=== PATIENT | female | born 1985 | race African-American/Black ===

== ENCOUNTER 2021-04-11 10:50 | Emergency (ER) | payer MEDICAID, OTHER ==
[~2021-04-11] VITALS: Ht 172.7 cm; Wt 80.0 kg
[~2021-04-11 10:50] MED LIST: HYDR-3927
[2021-04-11] MEDS ORDERED: METHOCARBAMOL 500MG TABLET PO ONE (11:15)
[2021-04-11] MEDS ORDERED: KETOROLAC 60MG/2ML VIAL IM ONE ×2 (11:15→16:30)
[2021-04-11] MEDS ORDERED: ACETAMINOPHEN 325MG TABLET PO ONE (11:15)
[2021-04-11] MEDS: LIDOCAINE 5% PATCH TOP SCH ×2 (11:38→12:02)
[2021-04-11] MEDS ORDERED: IPRATROPIUM BROMIDE (0.02%) 0.5MG/2.5ML NEB HHN STA (12:29)
[2021-04-11] MEDS: ALBUTEROL (0.083%) 2.5MG/3ML NEB HHN SCH ×3 (13:22→13:55)
[2021-04-11] MEDS ORDERED: IBUP-2028 MT (16:09)
[2021-04-11] MEDS ORDERED: TOPUD PO (16:10)
[2021-04-11] MEDS ORDERED: METH-653 MT (16:10)
[2021-04-11] MEDS ORDERED: LIDO1ADH5 TP (16:11)
[2021-04-11] MEDS ORDERED: MORP15TA67 MT ×2 (16:12→16:15)
[2021-04-11] MEDS ORDERED: KETOROLAC 30MG/ML VIAL IM ONE (16:30)
[2021-04-11] MEDS ORDERED: HYDROCODONE/ACETAMINOPHEN 5/325MG TABLET PO ONE (16:30)
[2021-04-11 17:01] VITALS: BP 137/86
== END 2021-04-11 17:01 | disposition home or self-care (01) ==
LOC: ER 11:24
DX: M25.572 Pain in left ankle and joints of left foot (principal); F12.10 Cannabis abuse, uncomplicated; R06.02 Shortness of breath; I10 Essential (primary) hypertension; J45.909 Unspecified asthma, uncomplicated; Z20.822 Contact with and (suspected) exposure to COVID-19
CPT/HCPCS: 71045; 73610; 93005; 94640; 96372; 99285; C9803; J1885; U0003; U0005; Z7610